=== PATIENT | male | born 1995 | race Caucasian/White ===

== ENCOUNTER → 2021-08-16 | Outpatient (CLI) | payer OTHER ==
[~2021-08-16] MED LIST: ANTIFUNGAL; Bactrim Ds Tab1 EACH PO; CLAR500 PO; Cleocin HCl150 MG PO; Cleocin HCl300 MG PO; HYDACE5 PO; IBUP800 PO; MUPI2TO TOP; Naprosyn500 MG PO; OMEP40CA12 PO; Peridex480 ML SS; Ultram50 MG PO
[2021-08-22 04:08] LABS: HSV-1 DNA Negative (Negative); HSV-2 DNA Negative (Negative)
== END ==
LOC: LAB 17:15 → LAB SHORT 17:15
PROVIDERS: Emergency Medicine
DX: R21 Rash and other nonspecific skin eruption (principal)
CPT/HCPCS: 87529

== ENCOUNTER 2021-09-08 20:32 | Emergency (ER) | payer OTHER ==
[~2021-09-08] VITALS: Ht 172.7 cm; Wt 79.4 kg
== END 2021-09-08 20:56 | disposition home or self-care (01) ==
LOC: ER 20:32
DX: Z53.21 Procedure and treatment not carried out due to patient leaving prior to being seen by health care provider (principal)
CPT/HCPCS: 99281

== ENCOUNTER → 2021-09-11 | Outpatient (CLI) | payer OTHER ==
[2021-09-11 13:20] LABS: BASOPHILS ABSOLUTE AUTO 0.03 K/mm3 (0.00-0.23); BASOPHILS PERCENT AUTO 0 % (0-2); EOSINOPHILS ABSOLUTE AUTO 0.05 K/mm3 (0.00-0.68); EOSINOPHILS PERCENT AUTO 1 % (0-6); Hematocrit 46.6 % (37.0-53.0); Hemoglobin 16.1 g/dL (13.5-17.5); IMMATURE GRAN ABSOLUTE AUTO 0.01 K/mm3 (0.00-0.10); IMMATURE GRAN PERCENT AUTO 0 % (0-1); LYMPHOCYTES ABSOLUTE AUTO 2.16 K/mm3 (0.84-5.20); LYMPHOCYTES PERCENT AUTO 26 % (21-46); MONOCYTES ABSOLUTE AUTO 0.68 K/mm3 (0.16-1.47); MONOCYTES PERCENT AUTO 8 % (4-13); Mean Corpuscular HGB 29.7 pg (26.0-34.0); Mean Corpuscular HGB Conc 34.5 g/dL (31.5-36.5); Mean Corpuscular Volume 86 fL (80-100); Mean Platelet Volume 10.2 fL (9.1-12.4); NEUTROPHILS PERCENT AUTO 65 % (41-73); Platelet Count 297 K/mm3 (150-400); RDW Coefficient Variation 12.2 % (11.7-14.2); RDW Standard Deviation 38.4 fL (35.1-46.3); Red Blood Cell Count 5.43 M/mm3 (4.30-5.90); White Blood Cell Count 8.43 K/mm3 (4.00-11.30)
[2021-09-11 14:28] LABS: Alanine Aminotransfer (ALT/SGP 49 U/L (12-78); Albumin, Blood 4.6 g/dL (3.4-5.0); Albumin/Globulin Ratio 1.5 (0.8-1.8); Alk Phos 78 U/L (50-136); Anion Gap 9 mmol/L (6-16); Aspartate Aminotrans (AST/SGOT 19 U/L (12-37); Bilirubin, Total 0.8 mg/dL (0.1-1.0); Blood Urea Nitrogen 12 mg/dL (8-24); Bun/Creatinine Ratio 14.1 (12.0-20.0); CO2, Blood 21 mmol/L (21-32); Calcium, Blood 9.6 mg/dL (8.5-10.1); Chloride, Blood 108 mmol/L (98-108); Cholesterol 153 mg/dL (50-200); Creatinine, Blood 0.85 mg/dL (0.60-1.20); Glomerular Filtration Rate >60 (60-); Glucose, Blood 128 mg/dL (70-99); HDL Cholesterol 51 mg/dL (>39); LDL/HDL RATIO 1.7; Low Density Lipoprotein Chol 89 mg/dL (0-110); Potassium, Blood 3.3 mmol/L (3.5-5.5); Sodium, Blood 138 mmol/L (136-145); Total Protein, Blood 7.6 g/dL (6.4-8.2); Triglycerides 66 mg/dL (30-140); Very Low Density Lipoprot Chol 13 mg/dL (6-28)
== END | disposition home or self-care (01) ==
LOC: LAB SHORT 10:50
PROVIDERS: Student in an Organized Health Care Education/Training Program
DX: R07.9 Chest pain, unspecified (principal)
CPT/HCPCS: 80053; 80061; 84443; 85025

== ENCOUNTER 2021-09-13 12:52 | Emergency (ER) | payer OTHER ==
[~2021-09-13] VITALS: Ht 177.8 cm; Wt 81.7 kg
== END 2021-09-13 16:55 | disposition left against medical advice (07) ==
LOC: ER 12:52
DX: Z53.21 Procedure and treatment not carried out due to patient leaving prior to being seen by health care provider (principal)

== ENCOUNTER 2021-09-15 10:11 | Emergency (ER) | payer OTHER ==
[~2021-09-15] VITALS: Ht 177.8 cm; Wt 81.7 kg
== END 2021-09-15 10:56 | disposition home or self-care (01) ==
LOC: ER 10:11
DX: F41.9 Anxiety disorder, unspecified (principal); Z88.0 Allergy status to penicillin; Z88.8 Allergy status to other drugs, medicaments and biological substances; Z88.2 Allergy status to sulfonamides; F17.200 Nicotine dependence, unspecified, uncomplicated
CPT/HCPCS: 99283

== ENCOUNTER 2021-09-18 23:42 | Emergency (ER) | payer OTHER ==
[~2021-09-18] VITALS: Ht 177.8 cm; Wt 83.0 kg
== END 2021-09-19 00:39 | disposition home or self-care (01) ==
LOC: ER 23:42
DX: F41.9 Anxiety disorder, unspecified (principal); F17.200 Nicotine dependence, unspecified, uncomplicated; Z88.0 Allergy status to penicillin; Z88.8 Allergy status to other drugs, medicaments and biological substances; Z88.2 Allergy status to sulfonamides; Z79.899 Other long term (current) drug therapy
CPT/HCPCS: 93005; 93010; 99284-25

== ENCOUNTER 2022-07-05 17:41 | Emergency (ER) | payer OTHER ==
[~2022-07-05] VITALS: Ht 177.8 cm; Wt 81.7 kg
[2022-07-05] MEDS ORDERED: Lisinopril2.5 MG (20:13)
== END 2022-07-05 21:00 | disposition home or self-care (01) ==
LOC: ER 17:41
DX: S82.61XA Displaced fracture of lateral malleolus of right fibula, initial encounter for closed fracture (principal); W01.0XXA Fall on same level from slipping, tripping and stumbling without subsequent striking against object, initial encounter; F17.200 Nicotine dependence, unspecified, uncomplicated; Z88.0 Allergy status to penicillin; Z88.8 Allergy status to other drugs, medicaments and biological substances
CPT/HCPCS: 73610; A9270

== ENCOUNTER 2022-08-22 14:41 | Emergency (ER) | payer OTHER ==
[~2022-08-22] VITALS: Ht 177.8 cm; Wt 90.7 kg
[~2022-08-22 14:41] MED LIST changes: +Lisinopril2.5 MG
[2022-08-22] MEDS ORDERED: MONDOXYNE NL100 MG PO (14:51)
== END 2022-08-22 14:55 | disposition home or self-care (01) ==
LOC: ER 14:41
DX: L73.9 Follicular disorder, unspecified (principal); F17.200 Nicotine dependence, unspecified, uncomplicated; J45.909 Unspecified asthma, uncomplicated; Z88.1 Allergy status to other antibiotic agents; Z88.0 Allergy status to penicillin; Z88.8 Allergy status to other drugs, medicaments and biological substances; Z88.2 Allergy status to sulfonamides; Z79.899 Other long term (current) drug therapy
CPT/HCPCS: 99282

== ENCOUNTER 2023-01-03 06:50 | Emergency (ER) | payer OTHER ==
[~2023-01-03] VITALS: Ht 177.8 cm; Wt 95.2 kg
[~2023-01-03 06:50] MED LIST changes: -Lisinopril2.5 MG; +Lisinopril2.5 MG PO; +MONDOXYNE NL100 MG PO
[2023-01-03 08:15] VITALS: BP 156/82
== END 2023-01-03 08:42 | disposition home or self-care (01) ==
LOC: ER 06:50
DX: S20.211A Contusion of right front wall of thorax, initial encounter (principal); J45.909 Unspecified asthma, uncomplicated; F17.200 Nicotine dependence, unspecified, uncomplicated; Z88.0 Allergy status to penicillin; Z88.1 Allergy status to other antibiotic agents; Z88.2 Allergy status to sulfonamides; V89.2XXA Person injured in unspecified motor-vehicle accident, traffic, initial encounter
CPT/HCPCS: 71046; 99283-25

== ENCOUNTER 2023-04-16 19:23 | Emergency (ER) | payer OTHER ==
[~2023-04-16] VITALS: Ht 177.8 cm; Wt 97.5 kg
[2023-04-16 19:29] VITALS: BP 164/108
== END 2023-04-16 20:51 | disposition home or self-care (01) ==
LOC: ER 19:23
DX: R21 Rash and other nonspecific skin eruption (principal); F17.200 Nicotine dependence, unspecified, uncomplicated; Z88.0 Allergy status to penicillin; Z88.1 Allergy status to other antibiotic agents; Z88.2 Allergy status to sulfonamides; Z79.899 Other long term (current) drug therapy
CPT/HCPCS: 99282; A9270

== ENCOUNTER 2023-07-18 16:50 | Emergency (ER) | payer OTHER ==
[~2023-07-18] VITALS: Ht 177.8 cm; Wt 93.0 kg
[2023-07-18 17:37] LABS: BASOPHILS ABSOLUTE AUTO 0.06 K/mm3 (0.00-0.23); BASOPHILS PERCENT AUTO 1 % (0-2); EOSINOPHILS ABSOLUTE AUTO 0.09 K/mm3 (0.00-0.68); EOSINOPHILS PERCENT AUTO 1 % (0-6); Hematocrit 51.7 % (37.0-53.0); Hemoglobin 18.2 g/dL (13.5-17.5); IMMATURE GRAN ABSOLUTE AUTO 0.02 K/mm3 (0.00-0.10); IMMATURE GRAN PERCENT AUTO 0 % (0-1); LYMPHOCYTES PERCENT AUTO 26 % (21-46); MONOCYTES ABSOLUTE AUTO 0.94 K/mm3 (0.16-1.47); MONOCYTES PERCENT AUTO 11 % (4-13); Mean Corpuscular HGB 29.6 pg (26.0-34.0); Mean Corpuscular HGB Conc 35.2 g/dL (31.5-36.5); Mean Corpuscular Volume 84 fL (80-100); Mean Platelet Volume 9.8 fL (9.1-12.4); NEUTROPHILS ABSOLUTE AUTO 5.51 K/mm3 (1.96-9.15); NEUTROPHILS PERCENT AUTO 62 % (41-73); Platelet Count 284 K/mm3 (150-400); RDW Coefficient Variation 12.1 % (11.7-14.2); RDW Standard Deviation 36.6 fL (35.1-46.3); Red Blood Cell Count 6.15 M/mm3 (4.30-5.90); White Blood Cell Count 8.92 K/mm3 (4.00-11.30)
[2023-07-18 17:57] LABS: Albumin, Blood 4.9 g/dL (3.4-5.0); Albumin/Globulin Ratio 1.5 (0.8-1.8); Bilirubin, Total 0.9 mg/dL (0.1-1.0); Bun/Creatinine Ratio 12.7 (12.0-20.0); Calcium, Blood 9.9 mg/dL (8.5-10.1); Creatinine, Blood 0.87 mg/dL (0.60-1.20); Globulin, Blood 3.3 g/dL (2.2-4.0); Potassium, Blood 3.8 mmol/L (3.5-5.5); Total Protein, Blood 8.2 g/dL (6.4-8.2)
[2023-07-18 19:46] LABS: Source, Urine Clean Catch
[2023-07-18 20:03] LABS: Appearance, Urine Hazy (Clear); Bilirubin, Urine Neg (Neg); Blood, Urine Neg (Neg); Color, Urine Yellow (P-Yellow); Glucose Qualitative, Urine Neg (Neg); Ketones, Urine 3+ (Neg); Leukocyte Esterase, Urine Neg (Neg); Nitrite, Urine Neg (Neg); Protein, Urine 2+ (Neg); Urobilinogen, Urine NORM (Normal)
[2023-07-18 20:24] LABS: Amorphous Light (0-Heavy); Bacteria Many /hpf; Mucus Mod (0-Heavy); Red Blood Cells, Urine 0-2 /hpf (0-2); Squamous Epithelial Cells Rare /hpf (Few); White Blood Cells, Urine 0-2 /hpf (0-5)
[2023-07-18] MEDS ORDERED: MUPIROCIN1 G1 TOP (22:23)
[2023-07-18] MEDS ORDERED: Hydroxyzine HCl50 MG PO (22:23)
[2023-07-18 22:25] VITALS: BP 126/94
== END 2023-07-18 22:31 | disposition home or self-care (01) ==
LOC: ER 16:50
PROVIDERS: Physician Assistant
DX: L57.0 Actinic keratosis (principal); L73.9 Follicular disorder, unspecified; L30.9 Dermatitis, unspecified; Z88.8 Allergy status to other drugs, medicaments and biological substances; Z88.2 Allergy status to sulfonamides; Z88.1 Allergy status to other antibiotic agents; F17.290 Nicotine dependence, other tobacco product, uncomplicated
CPT/HCPCS: 80053; 81001; 83690; 85025; 87086; 99284